=== PATIENT | female | born 1950 | race Caucasian/White ===

== ENCOUNTER 2022-12-30 11:02 | Outpatient (CLI) | payer OTHER, SELFPAY | END 2022-12-30 11:03 | disposition home or self-care (01) | LOC: NFLDREF 01-02 19:11 | PROVIDERS: Visit Provider Registered Nurse | DX: R30.0 Dysuria (principal); N39.0 Urinary tract infection, site not specified | CPT/HCPCS: 87086; 87186 ==

== ENCOUNTER 2023-01-04 09:17 | Outpatient (CLI) | payer OTHER, SELFPAY | END 2023-01-04 09:18 | disposition home or self-care (01) | LOC: NFLDREF 19:59 | PROVIDERS: Visit Provider Physician Assistant | DX: R35.0 Frequency of micturition (principal); N39.0 Urinary tract infection, site not specified | CPT/HCPCS: 87086; 87186 ==

== ENCOUNTER 2025-01-06 09:07 | Outpatient (CLI) | payer OTHER, SELFPAY | END 2025-01-06 09:08 | disposition home or self-care (01) | LOC: NFLDREF 01-12 01:33 | PROVIDERS: Visit Provider Physician Assistant Surgical | DX: N30.01 Acute cystitis with hematuria (principal) | CPT/HCPCS: 87086 ==